=== PATIENT | female | born 1965 | race Caucasian/White ===

== ENCOUNTER 2022-03-07 17:21 | Inpatient (IN) ==
[2022-03-07] MEDS ORDERED: Ondansetron ODT 4 MG TAB.RAPDIS SL PRN (21:01)
[2022-03-07] MEDS ORDERED: Naloxone 0.4 MG/ML INJ IVP PRN (21:01)
[2022-03-07] MEDS: niCARdipine 20 MG/200 ML MLS IVC SCH (22:34)
[2022-03-07] MEDS ORDERED: *HR* Dextrose 50 % in Water (Syg) 50 ML SYRINGE IVP PRN (22:47)
[2022-03-07] MEDS ORDERED: D5% in Water 1,000 ML IVC PRN (22:47)
[2022-03-07] MEDS ORDERED: Dextrose Gel 15 GM/37.5 ML TUBE PO PRN ×2 (22:47)
[2022-03-07 23:29] LABS: BUN/Creatinine Ratio 22 (6-26); Blood Urea Nitrogen 16 mg/dL (6-20); C-Reactive Protein 61 mg/L (Less than 10); Calcium 9.1 mg/dL (8.6-10.3); Carbon Dioxide 26 mEq/L (23-29); Chloride 105 mEq/L (98-107); Glucose 229 mg/dL (70-105); Osmolality,Calculated 304 (280-300); Potassium 3.1 mEq/L (3.5-5.1); Sodium 143 mEq/L (136-145)
[2022-03-07] MEDS: Insulin LISPRO 300 UNITS/3 ML VIAL SUBQ SCH (23:52)
[2022-03-08 01:37] LABS: Hematocrit 34.5 % (35.3-44.9); Hemoglobin 10.5 g/dL (11.5-15.4); Mean Corpuscular HGB Conc 30.4 g/dL (31.6-35.5); Mean Corpuscular Hemoglobin 25.7 pg (28.0-33.3); Mean Corpuscular Volume 84.4 fL (83.0-100.0); Mean Platelet Volume 10.5 fL (9.4-12.4); Platelet Count 266 K/mcL (140-400); Red Blood Count 4.09 M/mcL (3.82-4.97); Red Cell Distribution Width 17.1 % (11.5-14.5); White Blood Count 10.4 K/mcL (4.3-11.1)
[2022-03-08 01:48] LABS: INR 1.2; Prothrombin Time 13.1 Seconds (9.4-12.1)
[2022-03-08 01:53] LABS: Alanine Aminotransferase 9 Units/L (7-52); Albumin 3.4 g/dL (3.5-5.7); Albumin/Globulin Ratio 0.9 (1.1-2.2); Alkaline Phosphatase 68 Units/L (34-104); Aspartate Amino Transferase 12 Units/L (13-39); BUN/Creatinine Ratio 23 (6-26); Bilirubin,Total 0.5 mg/dL (0.3-1.0); Blood Urea Nitrogen 17 mg/dL (6-20); Calcium 9.1 mg/dL (8.6-10.3); Carbon Dioxide 25 mEq/L (23-29); Chloride 106 mEq/L (98-107); Globulin 3.7 g/dL (2.4-3.5); Glucose 231 mg/dL (70-105); Osmolality,Calculated 305 (280-300); Potassium 3.1 mEq/L (3.5-5.1); Sodium 143 mEq/L (136-145); Total Protein 7.1 g/dL (6.4-8.9)
[2022-03-08] MEDS ORDERED: Vancomycin 1,500 MG/265 ML IV.SOLN IVPB ONE (02:00)
[2022-03-08] MEDS ORDERED: Cefepime HCl 2,000 MG in 0.9 % Sodium Chloride 10 ML IVP SCH (06:00)
[2022-03-08] MEDS: cefTRIAXone 2,000 MG in 0.9 % Sodium Chloride Mini Bag 100 ML IVPB SCH ×2 (06:09→18:20)
[2022-03-08] MEDS: niCARdipine 20 MG/200 ML MLS IVC SCH ×2 (06:09→15:28)
[2022-03-08] MEDS: *HR* Enoxaparin 40 MG/0.4 ML SYRINGE SQ SCH (06:10)
[2022-03-08] MEDS: Insulin LISPRO 300 UNITS/3 ML VIAL SUBQ SCH ×3 (06:37→18:21)
[2022-03-08] MEDS ORDERED: Ampicillin 2,000 MG in 0.9 % Sodium Chloride Mini Bag 100 ML IVPB SCH (08:00)
[2022-03-08] MEDS ORDERED: Acyclovir 500 MG in D5% in Water 250 ML IVPB SCH (08:00)
[2022-03-08] MEDS ORDERED: Vancomycin 1,500 MG/265 ML IV.SOLN IVPB SCH (13:00)
[2022-03-08] MEDS ORDERED: *HR* LORazepam 2 MG/ML VIAL IVP ONE (13:01)
[2022-03-08] MEDS ORDERED: Haloperidol Lactate 5 MG/ML VIAL IVP ONE (13:01)
[2022-03-08] MEDS ORDERED: Haloperidol Lactate 5 MG/ML VIAL IVP PRN (14:08)
[2022-03-08] MEDS ORDERED: *HR* LORazepam 2 MG/ML VIAL IVP PRN (14:09)
[2022-03-08] MEDS ORDERED: Ketorolac 30 MG/ML VIAL IM ONE (15:02)
[2022-03-08] MEDS ORDERED: Ketorolac 30 MG/ML VIAL IVP ONE (15:17)
[2022-03-08] MEDS ORDERED: Acyclovir 550 MG in D5% in Water 250 ML IVPB SCH (16:00)
[2022-03-09] MEDS: niCARdipine 20 MG/200 ML MLS IVC SCH (00:29)
[2022-03-09] MEDS: Insulin LISPRO 300 UNITS/3 ML VIAL SUBQ SCH ×4 (00:32→19:03)
[2022-03-09 04:54] LABS: Hematocrit 36.5 % (35.3-44.9); Hemoglobin 11.3 g/dL (11.5-15.4); Mean Corpuscular Hemoglobin 25.2 pg (28.0-33.3); Mean Corpuscular Volume 81.3 fL (83.0-100.0); Mean Platelet Volume 10.3 fL (9.4-12.4); Platelet Count 289 K/mcL (140-400); Red Blood Count 4.49 M/mcL (3.82-4.97); Red Cell Distribution Width 16.1 % (11.5-14.5); White Blood Count 9.6 K/mcL (4.3-11.1)
[2022-03-09] MEDS: *HR* Enoxaparin 40 MG/0.4 ML SYRINGE SQ SCH (05:22)
[2022-03-09 05:43] LABS: Calcium 9.2 mg/dL (8.6-10.3); Magnesium 1.8 mg/dL (1.6-2.6); Potassium 3.1 mEq/L (3.5-5.1)
[2022-03-09] MEDS ORDERED: Acyclovir 550 MG in D5% in Water 250 ML IVPB SCH (06:00)
[2022-03-09] MEDS: cefTRIAXone 2,000 MG in 0.9 % Sodium Chloride Mini Bag 100 ML IVPB SCH ×2 (06:36→17:29)
[2022-03-09] MEDS ORDERED: 0.9 % Sodium Chloride 1,000 ML IVC SCH (10:30)
[2022-03-09] MEDS ORDERED: Haloperidol Lactate 5 MG/ML VIAL IVP ONE (11:18)
[2022-03-09] MEDS: carvediloL 6.25 MG TABLET PO SCH ×2 (11:52→17:34)
[2022-03-09] MEDS ORDERED: levETIRAcetam 1,000 MG in 0.9 % Sodium Chloride 100 ML IVPB ONE (11:57)
[2022-03-09] MEDS ORDERED: Morphine Sulfate 2 MG/ML SYRINGE IVP ONE (12:27)
[2022-03-09] MEDS ORDERED: *HR* LORazepam 2 MG/ML VIAL IVP ONE (12:40)
[2022-03-09] MEDS: Acyclovir 550 MG in D5% in Water 250 ML IVPB SCH (17:29)
[2022-03-10] MEDS: cefTRIAXone 2,000 MG in 0.9 % Sodium Chloride Mini Bag 100 ML IVPB SCH ×2 (05:12→19:23)
[2022-03-10] MEDS: *HR* Enoxaparin 40 MG/0.4 ML SYRINGE SQ SCH (05:22)
[2022-03-10] MEDS: Acyclovir 550 MG in D5% in Water 250 ML IVPB SCH (06:33)
[2022-03-10] MEDS: Insulin LISPRO 300 UNITS/3 ML VIAL SUBQ SCH ×4 (08:09→17:56)
[2022-03-10] MEDS: carvediloL 6.25 MG TABLET PO SCH ×2 (08:46→17:45)
[2022-03-10] MEDS: amLODIPine 5 MG TABLET PO SCH (08:46)
[2022-03-10] MEDS ORDERED: Gadolinium Contrast Agent (WT Based) IV PRN ×2 (10:11→15:57)
[2022-03-10] MEDS ORDERED: diazePAM 10 MG/2 ML SYRINGE IVP ONE (10:13)
[2022-03-10] MEDS ORDERED: Gabapentin 300 MG CAPSULE PO SCH (10:15)
[2022-03-10 11:14] LABS: Calcium 9.1 mg/dL (8.6-10.3); Potassium 3.4 mEq/L (3.5-5.1)
[2022-03-10] MEDS ORDERED: *HR* HYDROmorphone 2 MG/ML SYRINGE IVP ONE (12:00)
[2022-03-10] MEDS: Gabapentin 100 MG CAPSULE PO SCH ×2 (12:00→23:18)
[2022-03-10] MEDS ORDERED: Iopamidol - 370 500 ML MLS IVP ONE (12:47)
[2022-03-10] MEDS ORDERED: 0.9 % Sodium Chloride 1,000 ML IVC ONE (15:03)
[2022-03-10] MEDS ORDERED: Ziprasidone 20 MG, Closed System Device IM Kit 1 EACH in Water for inj. (sterile) 1 ML IM ONE (16:00)
[2022-03-11] MEDS ORDERED: Haloperidol Lactate 5 MG/ML VIAL IVP ONE (00:01)
[2022-03-11] MEDS: Insulin LISPRO 300 UNITS/3 ML VIAL SUBQ SCH ×4 (00:21→18:58)
[2022-03-11 02:49] LABS: Hematocrit 37.9 % (35.3-44.9); Mean Corpuscular HGB Conc 31.7 g/dL (31.6-35.5); Mean Corpuscular Hemoglobin 25.5 pg (28.0-33.3); Mean Corpuscular Volume 80.6 fL (83.0-100.0); Mean Platelet Volume 10.1 fL (9.4-12.4); Platelet Count 256 K/mcL (140-400); Red Cell Distribution Width 16.6 % (11.5-14.5); White Blood Count 11.4 K/mcL (4.3-11.1)
[2022-03-11 03:04] LABS: Magnesium 1.7 mg/dL (1.6-2.6); Potassium 2.8 mEq/L (3.5-5.1)
[2022-03-11] MEDS: cefTRIAXone 2,000 MG in 0.9 % Sodium Chloride Mini Bag 100 ML IVPB SCH ×2 (05:25→18:17)
[2022-03-11] MEDS: *HR* Enoxaparin 40 MG/0.4 ML SYRINGE SQ SCH (05:27)
[2022-03-11] MEDS: amLODIPine 5 MG TABLET PO SCH (09:12)
[2022-03-11] MEDS: Gabapentin 100 MG CAPSULE PO SCH ×2 (09:12→19:46)
[2022-03-11] MEDS: carvediloL 6.25 MG TABLET PO SCH ×2 (09:12→18:16)
[2022-03-11] MEDS ORDERED: 0.9 % Sodium Chloride 1,000 ML IVC SCH (10:45)
[2022-03-11] MEDS: Acyclovir 550 MG in D5% in Water 250 ML IVPB SCH ×2 (18:57→18:58)
[2022-03-11] MEDS: *HR* OxyCODONE/APAP 5/325 TABLET PO PRN (19:46)
[2022-03-11] MEDS ORDERED: NON-FORMULARY MEDICATION 1 EACH EACH (Carvedilol [Carvedilol] 3.125 MG Tablet) PO SCH (21:00)
[2022-03-11] MEDS ORDERED: Gabapentin 100 MG CAPSULE PO SCH (21:00)
[2022-03-11] MEDS ORDERED: Melatonin 3 MG TABLET PO ONE (23:03)
[2022-03-12] MEDS: Insulin LISPRO 300 UNITS/3 ML VIAL SUBQ SCH ×4 (00:55→17:16)
[2022-03-12 03:01] LABS: Hematocrit 32.7 % (35.3-44.9); Mean Corpuscular HGB Conc 31.8 g/dL (31.6-35.5); Mean Corpuscular Hemoglobin 25.7 pg (28.0-33.3); Mean Corpuscular Volume 80.9 fL (83.0-100.0); Mean Platelet Volume 10.2 fL (9.4-12.4); Platelet Count 233 K/mcL (140-400); Red Blood Count 4.04 M/mcL (3.82-4.97); Red Cell Distribution Width 16.4 % (11.5-14.5); White Blood Count 7.8 K/mcL (4.3-11.1)
[2022-03-12 03:02] LABS: Hemoglobin 10.4 g/dL (11.5-15.4)
[2022-03-12] MEDS: *HR* OxyCODONE/APAP 5/325 TABLET PO PRN ×2 (03:13→15:46)
[2022-03-12 03:21] LABS: Calcium 8.2 mg/dL (8.6-10.3); Magnesium 1.5 mg/dL (1.6-2.6)
[2022-03-12] MEDS: *HR* Enoxaparin 40 MG/0.4 ML SYRINGE SQ SCH (06:19)
[2022-03-12] MEDS: cefTRIAXone 2,000 MG in 0.9 % Sodium Chloride Mini Bag 100 ML IVPB SCH ×2 (06:20→17:16)
[2022-03-12] MEDS: Acyclovir 550 MG in D5% in Water 250 ML IVPB SCH ×2 (06:20→18:41)
[2022-03-12] MEDS: carvediloL 6.25 MG TABLET PO SCH ×2 (09:28→15:46)
[2022-03-12] MEDS: Aspirin Enteric Coated 81 MG Tablet PO SCH (09:28)
[2022-03-12] MEDS: Gabapentin 100 MG CAPSULE PO SCH ×2 (09:29→20:45)
[2022-03-12] MEDS: amLODIPine 5 MG TABLET PO SCH (09:31)
[2022-03-12 11:16] LABS: HSV 1 Glycoprotein G IgG 0.36 IV (<=0.89); HSV 2 Glycoprotein G IgG 0.21 IV (<=0.89)
[2022-03-13] MEDS: *HR* OxyCODONE/APAP 5/325 TABLET PO PRN ×3 (00:26→15:16)
[2022-03-13] MEDS: Insulin LISPRO 300 UNITS/3 ML VIAL SUBQ SCH ×4 (00:27→16:54)
[2022-03-13 05:22] LABS: Hematocrit 33.1 % (35.3-44.9); Hemoglobin 10.3 g/dL (11.5-15.4); Mean Corpuscular HGB Conc 31.1 g/dL (31.6-35.5); Mean Corpuscular Hemoglobin 25.2 pg (28.0-33.3); Mean Corpuscular Volume 81.1 fL (83.0-100.0); Mean Platelet Volume 10.5 fL (9.4-12.4); Platelet Count 254 K/mcL (140-400); Red Blood Count 4.08 M/mcL (3.82-4.97); Red Cell Distribution Width 16.2 % (11.5-14.5); White Blood Count 9.8 K/mcL (4.3-11.1)
[2022-03-13] MEDS: cefTRIAXone 2,000 MG in 0.9 % Sodium Chloride Mini Bag 100 ML IVPB SCH (05:25)
[2022-03-13] MEDS: *HR* Enoxaparin 40 MG/0.4 ML SYRINGE SQ SCH (05:25)
[2022-03-13 05:41] LABS: Calcium 8.2 mg/dL (8.6-10.3); Magnesium 1.6 mg/dL (1.6-2.6); Potassium 3.1 mEq/L (3.5-5.1)
[2022-03-13] MEDS: Acyclovir 550 MG in D5% in Water 250 ML IVPB SCH (06:23)
[2022-03-13] MEDS: Aspirin Enteric Coated 81 MG Tablet PO SCH (07:52)
[2022-03-13] MEDS: carvediloL 6.25 MG TABLET PO SCH ×2 (07:52→15:15)
[2022-03-13] MEDS: Gabapentin 100 MG CAPSULE PO SCH ×2 (07:53→20:14)
[2022-03-13] MEDS: amLODIPine 5 MG TABLET PO SCH (07:53)
[2022-03-13] MEDS: Topiramate 25 MG TABLET PO SCH (15:16)
[2022-03-13] MEDS: Melatonin 3 MG TABLET PO SCH (20:14)
[2022-03-14] MEDS: *HR* OxyCODONE/APAP 5/325 TABLET PO PRN ×2 (01:56→09:15)
[2022-03-14 03:29] LABS: Calcium 8.4 mg/dL (8.6-10.3); Potassium 3.6 mEq/L (3.5-5.1)
[2022-03-14] MEDS: *HR* Enoxaparin 40 MG/0.4 ML SYRINGE SQ SCH (05:37)
[2022-03-14] MEDS: Aspirin Enteric Coated 81 MG Tablet PO SCH (09:15)
[2022-03-14] MEDS: carvediloL 6.25 MG TABLET PO SCH ×2 (09:15→17:18)
[2022-03-14] MEDS: amLODIPine 5 MG TABLET PO SCH (09:16)
[2022-03-14] MEDS: Topiramate 25 MG TABLET PO SCH (09:16)
[2022-03-14] MEDS: Gabapentin 100 MG CAPSULE PO SCH ×2 (09:16→21:03)
[2022-03-14] MEDS: Insulin LISPRO 300 UNITS/3 ML VIAL SUBQ SCH ×3 (09:21→17:18)
[2022-03-14] MEDS: PARoxetine 20 MG TABLET PO SCH (10:55)
[2022-03-14] MEDS ORDERED: tiZANidine 4 MG TABLET PO SCH (16:15)
[2022-03-14] MEDS: *HR* OxyCODONE/APAP 5/325 TABLET PO SCH (17:17)
[2022-03-14] MEDS: tiZANidine 4 MG TABLET PO SCH ×2 (17:18→21:04)
[2022-03-14] MEDS: Melatonin 3 MG TABLET PO SCH (21:04)
[2022-03-15] MEDS: *HR* OxyCODONE/APAP 5/325 TABLET PO SCH ×4 (01:29→17:09)
[2022-03-15 04:06] LABS: Calcium 8.4 mg/dL (8.6-10.3)
[2022-03-15] MEDS: *HR* Enoxaparin 40 MG/0.4 ML SYRINGE SQ SCH (06:26)
[2022-03-15] MEDS: tiZANidine 4 MG TABLET PO SCH ×3 (10:27→21:42)
[2022-03-15] MEDS: amLODIPine 5 MG TABLET PO SCH (10:27)
[2022-03-15] MEDS: Gabapentin 100 MG CAPSULE PO SCH ×2 (10:28→21:42)
[2022-03-15] MEDS: Aspirin Enteric Coated 81 MG Tablet PO SCH (10:28)
[2022-03-15] MEDS: Insulin LISPRO 300 UNITS/3 ML VIAL SUBQ SCH ×3 (10:29→17:09)
[2022-03-15] MEDS: levETIRAcetam 250 MG TABLET PO SCH ×2 (10:32→17:08)
[2022-03-15] MEDS: carvediloL 6.25 MG TABLET PO SCH ×2 (10:32→17:08)
[2022-03-15] MEDS: PARoxetine 20 MG TABLET PO SCH (10:41)
[2022-03-15] MEDS: Melatonin 3 MG TABLET PO SCH (21:42)
[2022-03-16] MEDS: *HR* OxyCODONE/APAP 5/325 TABLET PO SCH ×4 (00:30→17:19)
[2022-03-16] MEDS: levETIRAcetam 250 MG TABLET PO SCH ×2 (05:58→17:20)
[2022-03-16] MEDS: *HR* Enoxaparin 40 MG/0.4 ML SYRINGE SQ SCH (05:58)
[2022-03-16 06:05] LABS: Calcium 8.9 mg/dL (8.6-10.3); Potassium 4.3 mEq/L (3.5-5.1)
[2022-03-16 06:13] LABS: Hematocrit 30.4 % (35.3-44.9); Hemoglobin 9.2 g/dL (11.5-15.4); Mean Corpuscular HGB Conc 30.3 g/dL (31.6-35.5); Mean Corpuscular Hemoglobin 25.6 pg (28.0-33.3); Mean Corpuscular Volume 84.7 fL (83.0-100.0); Mean Platelet Volume 10.8 fL (9.4-12.4); Platelet Count 268 K/mcL (140-400); Red Blood Count 3.59 M/mcL (3.82-4.97); Red Cell Distribution Width 17.1 % (11.5-14.5); White Blood Count 8.4 K/mcL (4.3-11.1)
[2022-03-16] MEDS ORDERED: 0.9 % Sodium Chloride 1,000 ML IVC SCH (09:15)
[2022-03-16] MEDS: Gabapentin 100 MG CAPSULE PO SCH (09:48)
[2022-03-16] MEDS: tiZANidine 4 MG TABLET PO SCH ×2 (09:48→15:22)
[2022-03-16] MEDS: Aspirin Enteric Coated 81 MG Tablet PO SCH (09:48)
[2022-03-16] MEDS: PARoxetine 20 MG TABLET PO SCH (09:49)
[2022-03-16] MEDS: amLODIPine 5 MG TABLET PO SCH (09:49)
[2022-03-16] MEDS: Insulin LISPRO 300 UNITS/3 ML VIAL SUBQ SCH ×3 (09:50→17:19)
[2022-03-16] MEDS: carvediloL 6.25 MG TABLET PO SCH ×2 (09:55→17:20)
[2022-03-16 14:53] LABS: Calcium 9.1 mg/dL (8.6-10.3)
[2022-03-16 16:12] VITALS: BP 145/76; PULSE 88; TEMP 97.9; O2SAT 93
== END 2022-03-16 19:46 | disposition home or self-care (01) | DRG 54 ==
LOC: 2NNU → SUATTDRO 20:18 → 2ANU 03-09 08:56
PROVIDERS: ADMIT Internal Medicine; ATTEND Student in an Organized Health Care Education/Training Program